=== PATIENT | male | born 1955 | race Caucasian/White ===

== ENCOUNTER 2023-06-21 03:51 | Inpatient (IN) | payer MEDICARE, SELFPAY ==
[2023-06-20 23:37] VITALS: BMI 32.9
[2023-06-20 23:43] VITALS: BP 155/80
[2023-06-21] VITALS (17 sets, daily range): BP systolic 147–178; BP diastolic 65–85
--- NOTE | 2023-06-21 00:01 | ED.GENMED ---
History of Present Illness
General
Chief Complaint: Abdominal Pain
Source: patient
Exam Limitations: none
Time Seen by Provider: 06/20/23 23:52
Travel History
Have you had any contact with someone who has COVID-19?: No
Do you have any symptoms of coronavirus? Fever > 100 degrees, chills, cough, shortness of breath, sore throat, loss of taste or smell, muscle aches, or headache?: No
History of Present Illness
History of Present Illness:
This is a 67 year old male that comes in with c/o abd pain. States that he started today around 2-3pm with unbearable abd pain. States that he had not had a BM in the past 3 days. States that he tried Gas-X, Dulcolax and Miralax but before this even
had a change to work he had a BM. States that he eat a lot of food over the weekend. States that his abd was bloated with the pain. States that he was hot and cold sweats, and nauseated. Denies any fever, chills, chest pain, SOB, vomiting, diarrhea,
headache, dizziness, urinary burning.
Past History
Past History
ED Past Medical History: HTN and Other (Diverticulosis and itis, Eczema, Peripheral neuropathy)
ED Past Surgical History: Orthopedic (Back surgery) and Tonsilectomy
Social History
Tobacco: Former smoker
Alcohol: None
Personal:
Living: alone
Employment: Employed
Review of Systems
Review of Systems
All Other Systems: ROS reviewed and negative except as documented in HPI and ROS
Constitutional: Reports other (Sweats and hot flashes); Denies fever
EENT: Reports no symptoms
Respiratory: Reports no symptoms; Denies cough or trouble breathing
Cardiac: Reports no symptoms; Denies chest pain
ABD/GI: Reports abdominal pain and nausea; Denies vomiting or diarrhea
: Reports no symptoms; Denies dysuria, frequency or urgency
Musculoskeletal: Reports no symptoms
Skin: Reports no symptoms
Neurological: Reports no symptoms; Denies dizzy or headache
Psychiatric: Reports no symptoms
Phy Exam
General Physical Exam
General Presentation: no apparent distress
General age: appears stated age
General Skin: warm and dry
General Habitus: normal
General Mental: alert
General Hydration: appears well hydrated
ENT Exam
ENT Exam: TM's normal, pharynx normal and neck supple
Eye Exam
Eye Exam: EOMI
Cardiovascular Exam
Cardiovascular Exam: regular rate/rhythm, no edema and normal peripheral pulses
Pulmonary Exam
Pulmonary Exam: lungs clear, no respiratory distress, no rales, chest non tender, no crackles, no rhonchi, no wheezing and no cough
Gastrointestinal Exam
Gastrointestinal Exam: normal bowel sounds, soft, no organomegaly, no pulsatile mass, non distended and tender (Mid abd tenderness with palpation)
Musculoskeletal Exam
Musculoskeletal Exam: full ROM and no edema
Skin Exam
Skin Exam: normal color, warm/dry, no rash and no petechia
Psychiatric Exam
Psychiatric Exam: normal mood/affect
Course
Orders/Labs/Results
Orders:
Orders
06/21/23 00:00
CT Abd/Pel (IV only)-DH only Urgent
Comment: History of diverticulitis
Reason For Exam: Mid abd pain,
IV Insert/Care/Rem.- Treatment PRN
Urinalysis Reflex To Culture Urgent
Date Specimen was Collected: 06/21/23
Time Specimen was Collected: 02:55
0.9% Sodium Chloride 1000 ml [Nss] 1,000 ml IV BOLUS
06/21/23 00:04
Ondansetron Injectable [Zofran] 4 mg IV NOW STA
06/21/23 00:34
Complete Blood Count/With Diff Urgent
Comprehensive Metabolic Panel Urgent
Lipase Urgent
06/21/23 00:47
Ketorolac [Toradol] 30 mg IV NOW STA
06/21/23 02:45
LevoFLOXacin 500 MG/100 ML [Levaquin] 500 mg in 100 ml IV NOW
MetroNIDAZOLE 500 MG/100 ML [Flagyl 500 mg] 100 ml IV NOW
06/21/23 03:03
Consult Surgery [SURGICAL CONSULT] Urgent
Consulting Provider: Valeriy Marquez
Was physician already notified: Yes
Abnormal Lab Results
06/21/23
00:34
WBC 14.6 H 10^3/uL
(4.8-10.8)
Abs Immat Gran (auto) 0.1 H 10^3/uL
(0-0.05)
Absolute Neuts (auto) 13.3 H 10^3/uL
(1.4-6.5)
Absolute Lymphs (auto) 0.4 L 10^3/uL
(1.2-3.4)
Absolute Monos (auto) 0.7 H 10^3/uL
(0.1-0.6)
Neutrophils % 91.5 H %
(42.2-75.2)
Lymphocytes % 2.9 L %
(20.5-51.1)
Glucose 148 H mg/dl
(70-99)
Calcium 10.5 H mg/dl
(8.4-10.2)
06/21/23 00:34
06/21/23 00:34
Leukocytosis, Glucose nonfasting. Calcium slightly elevated. Lipase normal at 111
Vital Signs
Initial and Last Documented VS:
Initial Vital Signs
Temp Pulse Resp BP Pulse Ox
98.2 F 64 22 155/80 97
06/20/23 23:43 06/20/23 23:43 06/20/23 23:43 06/20/23 23:43 06/20/23 23:43
Last Documented Vital Signs
Temp Pulse Resp BP Pulse Ox
98.2 F 64 22 165/68 94
06/20/23 23:43 06/20/23 23:43 06/20/23 23:43 06/21/23 01:00 06/21/23 01:45
MDM/Problems Addressed
Differential Diagnosis Includes:
Constipation, Diverticulitis
MDM/Problems Addressed:
This is a 67 year old male that comes in with c/o unbearable abd pain. States that he eat a lot over the weekend and he had not had a BM in 3 days. States that he had abd bloating first and then he tried Miralax, Dulcolax and Gas-X and before this
had a change to work he had a BM.
Will get labs and CT scan.
Back into see patient. Explained that he would be admitted as he has a small bowel obstruction. There is also some bowel wall thickening. Will admit patient and give IV antibiotics. Explained that the hospitalist will admit patient and they may have
surgery and GI see patient.
Chronic conditions affecting care:
Diverticulitis
Acute Exacerbation and/or Progression of Chronic Illness:
Diverticulitis
*Radiology
Radiology exam reviewed: radiology read reviewed (CT night hawk- Comparison 12/21/2017. There is a high-grade mecahanical small bowel obstruction with transition point in the central abdomen where there is a focal small bowel wall thickening and
calcification. This may be due to a small bowel mass such as carcinoid or possibly a lesion such as ) and other (CT cont- Meckel diverticulum with mesodiverticular band. Normal appendix. No free air. No obstructive uropathy. NO concerning bone
finding. )
*Pulse Oximetry
Patient hypoxic: no
*EKG
Interpreted by ED Provider?: NA
Rate: EKG- N/A
*Floatlight Loading Supervisor Interpretation
Rate: Floatlight Loading Supervisor- N/A
*Critical Care Note
Total Time (30-74mins, 75-104mins- exclusive of procedures): Not Applicable
ED Attending Note
-
Portions of this chart may have been created with voice recognition software.� Occasional wrong word or��sound alike� substitutions may have occurred due to the inherent limitations of voice recognition software.
Discharge Plan
Departure
Patient Disposition: Admit
Date of Disposition: 06/21/23
Time of Disposition: 02:53
Admit to: Med/Surg
Presentation/result/management discussed w/ accepting MD/DO: Hospitalist
Patient with high blood pressure during this ER visit?: Yes
Condition: Good
Covid-19: Not Applicable
Discharge Problem:
SBO (small bowel obstruction)
Prescriptions:
No Action
losartan 50 MG tablet
100 mg PO DAILY
amlodipine 2.5 MG tablet
2.5 mg PO DAILY
metronidazole 500 MG tablet
500 mg PO TID Qty: 21 0RF
multivitamin [Multi-Vitamins] Tablet
1 tab
Garlique 400 mg Tablet,Delayed Release (Dr/Ec)
1 mg PO
ascorbic acid (vitamin C) [Vitamin C] 500 mg Tablet
500 mg PO DAILY
ascorbic acid (vitamin C) [Vitamin C] 500 mg Tablet
500 mg PO DAILY
ferrous sulfate [iron] 325 mg (65 mg iron) Tablet
325 mg PO DAILY
magnesium oxide 500 mg Tablet
500 mg PO DAILY
vitamin E 100 unit Tablet
1 unit PO 1XD
vitamin B6-vitamin E-magnesium Tablet
1 tab PO 1XD
cholecalciferol (vitamin D3) [Vitamin D3] 25 mcg (1,000 unit) Tablet
25 mcg PO DAILY
omega 1-hvr-rsz-fish oil [Fish Oil] 1,200 (144-216) mg Capsule
1 cap PO 1XD
Referrals:
Devin Yanez DO [Family Provider] -
Interventions
Interventions:
*Risk Screen - Suicide Last Done: 06/20/23 23:43
*General Assessment Last Done: 06/21/23 00:48
*Neglect/Abuse Screening Last Done: 06/20/23 23:43
RC-Zplgkd-Ctygjvdvxt Assessment Last Done: 06/21/23 00:48
Discharge Date and Time
Print Language: CITIZEN OF [place]
[2023-06-21] MEDS: ZOFRAN 4 MG IV ×2 (00:38→04:40)
[2023-06-21] MEDS: NSS 1000 IV ×3 (00:39→19:00)
[2023-06-21 00:49] LABS: % Basophils 0.3 % (0-2); % Eosinophils 0.1 % (0-6); % Immature Granulocytes 0.4 % (0-0.5); % Lymphocytes 2.9 % (20.5-51.1); % Monocytes 4.8 % (1.7-9.3); % Neutrophils 91.5 % (42.2-75.2); Absolute Immature Granulocytes 0.1 10^3/uL (0-0.05); Absolute Lymphocytes 0.4 10^3/uL (1.2-3.4); Absolute Monocytes 0.7 10^3/uL (0.1-0.6); Absolute Neutrophils 13.3 10^3/uL (1.4-6.5); Hematocrit 44.7 % (39.0-52.0); Hemoglobin 15.6 g/dL (13.0-18.0); Mean Corp Hgb Conc. 34.9 g/dL (33.0-37.0); Mean Corpuscular Hgb 30.4 pg (27.0-31.0); Mean Platelet Volume 9.6 fL (7.4-10.4); Nucleated Red Blood Cells % 0 % (-); Platelet Count 193 10^3/uL (130-400); Red Blood Cell Count 5.14 10^6/uL (4.70-6.10); Red Cell Dist. Width 13.7 % (11.5-14.5); White Blood Cell Count 14.6 10^3/uL (4.8-10.8)
[2023-06-21] MEDS: TORADOL 30 MG IV (00:53)
[2023-06-21 01:06] LABS: ALT (SGPT) 20 U/L (0-50); AST (SGOT) 25 U/L (17-59); Albumin 4.7 g/dl (3.5-5.0); Alkaline Phosphatase 70 U/L (38-126); Blood Urea Nitrogen 18 mg/dl (9-20); Calcium 10.5 mg/dl (8.4-10.2); Carbon Dioxide 26 mmol/L (22-30); Chloride 101 mmol/L (98-107); Estimated Creatinine Clearance > 125 ml/min; Glucose 148 mg/dl (70-99); Lipase 111 U/L (23-300); Potassium 4.2 mmol/L (3.5-5.1); Sodium 136 mmol/L (135-145); Total Protein 7.4 g/dl (6.3-8.2); eGFR > 60.00
--- NOTE | 2023-06-21 03:20 | HPS.HSE ---
Family Physician
-
Family Physician: Devin Yanez
Chief Complaint
-
abd pain
History of Present Illness
67 y/o M hx of HTN, presents with abd pain. pain started 3pm. Pain is central abdomen, nonradating, severe when he presented to ER associated symptoms include hot/cold sweats, + nausea. No fever/chills, no chest pain or SOB. no other complaints. He
does note no BM in last 3 days. Has tried various meds such as GasX, ducolax and Miralax without success. Patient admits to eating alot of food this weekend during a celebratory dinner honoring his late .
In ER, CT imaging revealed high-grade SBO
Medical History
Past Medical History
Past Medical History: Reports HTN
Past Surgical History: Reports Tonsilectomy
Social History
Tobacco: Former Smoker
Alcohol: None
Personal:
Living: Alone
Employment: Employed
Family History
Family History: Not pertinent
Allergies / Home Medications
Allergies reflects when Allergies were last updated in [facility].
Home Medications with original date entered in [facility]
Allergy/Medication List:
Allergies
Allergy/AdvReac Type Severity Reaction Status Date / Time
cephalexin Allergy Unknown Verified 06/20/23 23:46
Home Medications
amlodipine 2.5 mg tablet 2.5 mg PO DAILY 12/21/17
losartan 50 mg tablet 100 mg PO DAILY 12/21/17
metronidazole 500 mg tablet 500 mg PO TID #21 tabs 12/21/17
ascorbic acid (vitamin C) 500 mg tablet (Vitamin C) 500 mg PO DAILY 08/06/22
ascorbic acid (vitamin C) 500 mg tablet (Vitamin C) 500 mg PO DAILY 08/06/22
cholecalciferol (vitamin D3) 25 mcg (1,000 unit) tablet (Vitamin D3) 25 mcg PO DAILY 08/06/22
ferrous sulfate 325 mg (65 mg iron) tablet (iron) 325 mg PO DAILY 08/06/22
garlic 400 mg tablet,delayed release 1 mg PO 08/06/22
magnesium oxide 500 mg PO DAILY 08/06/22
multivitamin 1 tab 08/06/22
omega 2-caa-brl-fish oil 1,200 mg (144 mg-216 mg) capsule (Fish Oil) 1 cap PO 1XD 08/06/22
vitamin B6-vitamin E-magnesium tablet 1 tab PO 1XD 08/06/22
vitamin E 100 unit tablet 1 unit PO 1XD 08/06/22
pending home med verification
Review of Systems
-
A 12 point ROS was completed and negative except as noted: Yes
Physical Exam
Vital Signs
Vital Signs
Temp Pulse Resp BP Pulse Ox
98.2 F 64 22 165/68 94
06/20/23 23:43 06/20/23 23:43 06/20/23 23:43 06/21/23 01:00 06/21/23 01:45
Physical Exam
General: No Apparent Distress and Obese
HEENT: NormoCephalic
Respiratory: No Wheezes or Rales
Cardiac: S1/S2 and Regular Rhythm
GI: Soft and Tender (mild central abdomen)
Neuro: AO x 3
Hematologic/Lymphatic: No Lymphadenopathy
Psych: Calm
Laboratory Results
-
06/21/23 00:34
06/21/23 00:34
Laboratory Results
Total Bilirubin 1.0 mg/dl (0.2-1.3) 06/21/23 00:34
AST 25 U/L (17-59) 06/21/23 00:34
ALT 20 U/L (0-50) 06/21/23 00:34
Alkaline Phosphatase 70 U/L (38-126) 06/21/23 00:34
Lipase 111 U/L (23-300) 06/21/23 00:34
Data Reviewed
-
CT Scan: Report Reviewed by me and Discussed with Patient
Lab Data: Labs Reviewed by me and Discussed with Patient
Impression/Plan
-
Assessment:
High grade mechanical SBO
- night read of CT: high grade mechanical SBO with transition point central abdomen with focal small bowel thickening. f/u formal read
- no fevers; defer Abx. Suspect leukocytosis from stress/dehydration.
- NPO/IVF
- pain control, anti-emetics
- watch for vomiting and NGT needs; none currently.
- GS consulted in real time; no surgical intervention urgently indicated per Dr. Marquez
Essential HTN
- continue ARB/Norvasc
DVT ppx: SCDs
Code: Full
[2023-06-21 03:39] LABS: Urine Albumin Trace (Neg - Trace); Urine Bilirubin Negative (Negative); Urine Character Clear (Clear); Urine Color Yellow; Urine Glucose Negative (Negative); Urine Ketone 1+ (Negative); Urine Leukocyte Negative (Negative); Urine Nitrite Negative (Negative); Urine Occult Blood Negative (Negative); Urine Urobilinogen Negative (Neg - 1+)
--- NOTE | 2023-06-21 06:22 | PTCARENOTE ---
Received pt from ER alert oriented,ambulatory to room from stretcher,tolerated activity well.Pt vomited x1 100 mls once sitting down,Zofran was given right before arrival in ER.Physical assessment preformed,pt denies pain. IVF NSS initiated at 80mls
hr,sleeping after admission done,VS stable.
[2023-06-21 06:38] LABS: Hematocrit 41.9 % (39.0-52.0); Hemoglobin 14.5 g/dL (13.0-18.0); Mean Corp Hgb Conc. 34.6 g/dL (33.0-37.0); Mean Corpuscular Volume 86.7 fL (80.0-94.0); Mean Platelet Volume 9.6 fL (7.4-10.4); Platelet Count 186 10^3/uL (130-400); Red Blood Cell Count 4.83 10^6/uL (4.70-6.10); Red Cell Dist. Width 13.8 % (11.5-14.5); White Blood Cell Count 13.9 10^3/uL (4.8-10.8)
[2023-06-21 07:02] LABS: Blood Urea Nitrogen 18 mg/dl (9-20); Calcium 10.3 mg/dl (8.4-10.2); Carbon Dioxide 20 mmol/L (22-30); Chloride 107 mmol/L (98-107); Estimated Creatinine Clearance > 125 ml/min; Glucose 129 mg/dl (70-99); Potassium 4.4 mmol/L (3.5-5.1); Sodium 138 mmol/L (135-145); eGFR > 60.00
--- NOTE | 2023-06-21 07:49 | CON.GS ---
Medical History
-
Chief Complaint: Abdominal pain
History of Present Illness:
Patient is a 67 yo M with a PMH of obesity, HTN, and diverticulosis with known Meckel's diverticulum who presents to the hospital with less than 24 hours of abdominal pain. Mr. Chakraborty states that his symptoms began yesterday afternoon and
describes a severe crampy abdominal pain in his central abdomen. He initially attributed his symptoms to constipation and attempted OTC bowel regimen with a small bowel movement, but no relief in his symptoms. His abdominal pain persisted and
worsened prompting presentation to the ED. no flatus or further bowel movement since admission. No fevers or chills. No recent weight loss. No bloody stools. Episode of nausea and vomiting upon arriving to the floors in the hospital. She
reports 1 prior episode of similar though less severe pain back in 2018. No personal history of GI malignancies. Most recent colonoscopy was in 02/2023 following a resection of a tubular adenoma of the cecum in 08/2022.
Past Medical History
Past Medical History: HTN and Other (Obesity, diverticulosis)
Past Surgical History: Tonsilectomy
Social History
Tobacco: Non-Smoker
Alcohol: Occasional
Drug: None
Personal:
Living: Alone
Family History
Family History: Reviewed & Noncontributory
Allergies / Home Medications
Allergy/AdvReac Type Severity Reaction Status Date / Time
cephalexin Allergy Unknown Verified 06/20/23 23:46
�Medication �Instructions �Recorded �Confirmed �Type
amlodipine 2.5 mg tablet 2.5 mg PO DAILY Blood Pressure 12/21/17 06/21/23 History
losartan 50 mg tablet 100 mg PO DAILY Blood Pressure 12/21/17 06/21/23 History
metronidazole 500 mg tablet 500 mg PO TID #21 tabs 12/21/17 08/06/22 Rx
ascorbic acid (vitamin C) 500 mg 500 mg PO DAILY Supplement 08/06/22 08/06/22 History
tablet (Vitamin C)
ascorbic acid (vitamin C) 500 mg 500 mg PO DAILY Supplement 08/06/22 08/06/22 History
tablet (Vitamin C)
cholecalciferol (vitamin D3) 25 25 mcg PO DAILY Supplement 08/06/22 08/06/22 History
mcg (1,000 unit) tablet (Vitamin
D3)
ferrous sulfate 325 mg (65 mg 325 mg PO DAILY Supplement 08/06/22 08/06/22 History
iron) tablet (iron)
garlic 400 mg tablet,delayed 1 mg PO Supplement 08/06/22 History
release
magnesium oxide 500 mg PO DAILY Electrolyte 08/06/22 08/06/22 History
Repletion
multivitamin 1 tab Supplement 08/06/22 History
omega 6-erf-lpq-fish oil 1,200 mg 1 cap PO 1XD High Cholesterol 08/06/22 08/06/22 History
(144 mg-216 mg) capsule (Fish Oil)
vitamin B6-vitamin E-magnesium 1 tab PO 1XD Supplement 08/06/22 08/06/22 History
tablet
vitamin E 100 unit tablet 1 unit PO 1XD Supplement 08/06/22 08/06/22 History
Review of Systems
-
A 10 point review of systems was completed, and was negative except as per HPI.
Physical Exam
Vital Signs
Temp Pulse Resp BP Pulse Ox
98.4 F 72 18 178/79 98
06/21/23 05:51 06/21/23 05:51 06/21/23 05:51 06/21/23 05:51 06/21/23 06:16
06/20/23 06/21/23 06/22/23
06:59 06:59 06:59
Actual Weight 111.4 kg
Body Mass Index (BMI) 32.9
Lab Results
06/21/23 06:17
06/21/23 06:17
WBC 13.9 10^3/uL (4.8-10.8) H 06/21/23 06:17
Hgb 14.5 g/dL (13.0-18.0) 06/21/23 06:17
Hct 41.9 % (39.0-52.0) 06/21/23 06:17
Plt Count 186 10^3/uL (130-400) 06/21/23 06:17
Abs Immat Gran (auto) 0.1 10^3/uL (0-0.05) H 06/21/23 00:34
Neutrophils % 91.5 % (42.2-75.2) H 06/21/23 00:34
Physical Exam
General: Well Developed, Well Nourished and No Apparent Distress
HEENT: Normocephalic and Anicteric
Respiratory: Non Labored Respirations
Cardiac: Regular Rhythm
GI: Soft, Tender (Mild mid abdomen), Distended (Moderate, tympanitic), Obese and Other (Non-peritoneal)
Musculoskeletal: No Edema
Skin: Warm and Dry
Neuro: Nonfocal/Grossly Intact
Data Reviewed
-
CT Scan: Image Personally Visualized and interpreted
Labs: Labs Reviewed by me
Old Records: Reviewed
Assessment / Plan
-
Patient is a 67 yo M p/w SBO secondary to small bowel mass versus Meckel's diverticulum
The natural history and pathophysiology of small bowel obstructions was discussed. Current bowel obstruction does not appear to be related to adhesions or hernias, more likely related to a small bowel mass or diverticulum. Abrupt transition point
at the area of this calcified diverticulum. No radiographic or clinical concerns for bowel ischemia or perforation (no pneumatosis, significant bowel wall thickening, or free air, though scan limited by lack of oral contrast). Options for
management at this time including medical management with NGT decompression and antibiotics versus surgical exploration and likely small bowel resection were considered and discussed. The pros and cons of both approaches was discussed. We
discussed that given the findings of a potential small bowel mass and diverticulum with prior issues back in 2018 and current issues, surgical exploration and resection would be recommended regardless of the ability to manage this current episode
medically. Patient agrees and willing to proceed with surgical exploration.
Plan for a laparoscopic possible open lysis of adhesions and small bowel resection. The procedure itself, as well as the risks, benefits, and alternatives was discussed. Specifically, we discussed the risks of bleeding, infection, injury to
surrounding structures, anastomotic leak, wound complications, hernia formation, and complications from general anesthesia. Typical postprocedural recovery including the potential for ileus were discussed. All questions answered. Consent signed.
-- Laparoscopic assisted small bowel resection
-- NPO, IVF
-- NGT given degree of gastric distension on CT
-- Abx: Levaquin and Flagyl
--- NOTE | 2023-06-21 08:00 | W.SUR.PREOP ---
Pre-Operative Surgical Note
-
I have examined this patient prior to the performance of the scheduled procedure.
The patient's condition is unchanged from the time of the current History and
Physical and the patient is able to undergo the scheduled procedure.
[2023-06-21] MEDS: FLAGYL 500 MG 100 IV (08:34)
[2023-06-21] MEDS: NORVASC PO (08:47)
[2023-06-21] MEDS: MORPHINE SULFATE 2 MG IV (08:47)
[2023-06-21] MEDS: COZAAR PO (08:47)
--- NOTE | 2023-06-21 09:39 | W.PN.HOSP.TC ---
Today's Communication/Plan
-
see plan
Assessment / Plan
Assessment / Plan
67 y/o man with hx HTN presents with abd pain in setting no BM x 3 days. In ER, CT imaging revealed high-grade SBO.
CT A/P
IMPRESSION:
1. Findings consistent with high-grade small bowel obstruction. Transition point is seen within the mid abdomen, best seen on series 201 images 48-53, and coronal images 22-25. Obstruction may be due to adhesions, small bowel inflammatory process,
or small bowel mass.
2. No evidence of pneumatosis intestinalis or extraluminal air.
High grade mechanical SBO
-appreciate surgery, plan for laparascopic assisted small bowel resection today
- NPO/IVF
- NGT
- pain control
- antibiotics Levaquin/Flagyl
Essential HTN
- continue ARB/Norvasc
DVT ppx: SCDs
Code: Full
Anticipated Discharge: > 48 hours
Subjective/Interval History
-
Date of Service: June 21, 2023
NGT uncomfortable
abdomen less distended
passed gas once yesterday
Objective Data
-
Labs:
Laboratory Results
06/21/23 06/21/23
00:34 06:17
WBC 14.6 H 13.9 H
Hgb 15.6 14.5
Hct 44.7 41.9
Plt Count 193 186
Sodium 136 138
Potassium 4.2 4.4
Chloride 101 107
Carbon Dioxide 26 20 L
BUN 18 18
Creatinine 0.7 0.7
Glucose 148 H 129 H
Calcium 10.5 H 10.3 H
Total Bilirubin 1.0
AST 25
ALT 20
Alkaline Phosphatase 70
Vital Signs:
Vital Signs
Temp Pulse Resp BP Pulse Ox
98.4 F 67 19 167/80 99
06/21/23 07:18 06/21/23 07:18 06/21/23 07:18 06/21/23 07:18 06/21/23 07:18
I&O
06/20/23 06/21/23 06/22/23
06:59 06:59 06:59
Output Total 800 / 800
Balance -800 / -800
Review of Systems
-
History Source: Patient
All other systems: Reviewed and negative
Physical Exam
-
General: No Apparent Distress
HEENT: PERRLA and Other (NGT in place )
Respiratory: Clear to Auscultation; Negative Wheezes
Cardiac: Regular Rhythm and S1/S2
GI: Other (non-tender with NGT in )
Musculoskeletal: No Edema
Skin: Warm and Dry; Negative Rash
Neuro: AO x 3
Psych: Calm
Data Reviewed
-
Diagnostic Radiology: Report Reviewed by me
Labs: Labs Reviewed by me
[2023-06-21] MEDS: LEVAQUIN 100 IV (10:02)
[2023-06-21] MEDS: CHLORASEPTIC/SORE THROAT SPRAY 1 SPRAY PO (10:09)
--- NOTE | 2023-06-21 10:50 | CM ---
CM met with pt bedside
Pt resides alone in a 2SH with 2STE, 13 steps to full bath and bedroom
Pt recently - emotional support provided
Pt is independent with his ADLs without any ADS, drives+, food secure
Pt has a WW for use if needed
Pt has 4 children and 8 grandchildren- most local and a great support to pt
PCP- Devin Yanez
Rx- [facility]
Plan for OR today for lap. small bowel resection
CM will follow pt for dc planning
Discharge Disposition- home, no needs anticipated
--- NOTE | 2023-06-21 18:08 | W.IMMPOSTOP ---
Addendum entered and electronically signed by Valeriy Marquez MD 06/21/23 18:30:
Dic#[id number]
Original Note:
Surgical Immed Post Op Note
-
Primary Surgeon: Jimmy
Assisting Surgeon: None
Pre-op Diagnosis: SBO
Post-op Diagnosis: SBO
Procedure Performed: Laparoscopic assisted small bowel resection x2, primary umbilical hernia repair
Anesthesia Type: General
Specimen / Cultures:
1. Sement of small bowel
Estimated Blood Loss: 11 cc
Complications: None
Operative Findings:
1. High grade obstruction within jejunum involving two separate loops of bowel approximately 30-40 cm apart
2. Firm fibrotic adhesion unable to be safely lysed, no clear mass, diverticulum, desmoplastic reaction, or palpable adenopathy
3. En-block resection
4. Primary stapled anastomosis x2 with ERENDIRA blue load and TA 60, mesenteric defect closed
5. Umbilical hernia containing fat, defect 1 cm, primary closure incorporated into extraction
[2023-06-21] MEDS: FLAGYL 500 MG IV (18:55)
[2023-06-21] MEDS: DILAUDID 0.5 MG IV ×2 (18:57→22:03)
[2023-06-21] MEDS: DILAUDID IV (22:03)
[2023-06-22] MEDS: FLAGYL 500 MG 100 IV ×4 (00:06→23:46)
[2023-06-22] MEDS: OFIRMEV 100 IV ×5 (00:12→23:46)
[2023-06-22 03:15] VITALS: BP 152/73
[2023-06-22] MEDS: NSS 1000 IV (06:14)
[2023-06-22 07:05] LABS: % Basophils 0.2 % (0-2); % Immature Granulocytes 0.3 % (0-0.5); % Lymphocytes 7.9 % (20.5-51.1); % Monocytes 10.4 % (1.7-9.3); % Neutrophils 81.2 % (42.2-75.2); Absolute Lymphocytes 0.8 10^3/uL (1.2-3.4); Absolute Neutrophils 7.8 10^3/uL (1.4-6.5); Hematocrit 39.3 % (39.0-52.0); Hemoglobin 13.4 g/dL (13.0-18.0); Mean Corp Hgb Conc. 34.1 g/dL (33.0-37.0); Mean Corpuscular Hgb 30.7 pg (27.0-31.0); Mean Corpuscular Volume 90.1 fL (80.0-94.0); Mean Platelet Volume 10.3 fL (7.4-10.4); Nucleated Red Blood Cells % 0 % (-); Platelet Count 170 10^3/uL (130-400); Red Blood Cell Count 4.36 10^6/uL (4.70-6.10); Red Cell Dist. Width 13.9 % (11.5-14.5); White Blood Cell Count 9.6 10^3/uL (4.8-10.8)
[2023-06-22 07:29] VITALS: BP 151/75
[2023-06-22 07:39] LABS: Blood Urea Nitrogen 16 mg/dl (9-20); Carbon Dioxide 25 mmol/L (22-30); Chloride 105 mmol/L (98-107); Estimated Creatinine Clearance 113 ml/min; Glucose 119 mg/dl (70-99); Magnesium 2.1 mg/dl (1.6-2.3); Potassium 4.2 mmol/L (3.5-5.1); Sodium 137 mmol/L (135-145); eGFR > 60.00
[2023-06-22] MEDS: DILAUDID 0.5 MG IV (07:57)
[2023-06-22] MEDS: PROTONIX IV 40 MG IV (07:59)
[2023-06-22] MEDS: NSS (PRESERVATIVE FREE) 10 ML IV (07:59)
[2023-06-22] MEDS: NORVASC 2.5 MG PO (08:20)
[2023-06-22] MEDS: COZAAR 100 MG PO (08:20)
[2023-06-22] MEDS: LEVAQUIN 100 IV (09:20)
--- NOTE | 2023-06-22 10:20 | W.PN.GS2 ---
Addendum entered and electronically signed by Valeriy Marquez MD 06/30/23 08:23:
CDI
Intestinal Abscess present on pathology and was present on admission
Addendum entered and electronically signed by Valeriy Marquez MD 06/22/23 13:55:
CDI
Compete SBO
Original Note:
Today's Communication / Plan
-
-- NPO, IVF, NGT decompression until ROBF
-- Pain control: Tylenol, Toradol, IV Dilaudid PRN
-- Abx for 24 hours post-op, no need for additional after today
Assessment / Plan
-
Patient is a 67 yo M POD#1 s/p laparoscopic assisted SBR x 2 and open primary umbilical hernia repair
Recovering well. No postoperative concerns.
-- NPO, IVF, NGT decompression until ROBF
-- Pain control: Tylenol, Toradol, IV Dilaudid PRN
-- Abx for 24 hours post-op, no need for additional after today
-- OOB/ambulate
-- Lovenox for DVT
-- Protonix for GI
Subjective Data
-
Date of Service: June 22, 2023
Reports LEFT flank and back soreness. Denies worsening abdominal pain. No nausea or vomiting. No flatus or stool. Minimal ambulation. Olivo removed, due to void.
Objective Data
-
Intake and Output
06/21/23 06/22/23 06/23/23
06:59 06:59 06:59
Intake Total 1340 / 1340
Output Total 2875 / 2875 450 / 450
Balance -1535 / -1535 -450 / -450
Intake:
IV fluids (Total) 1110 / 1110
normosol 150 / 150
IV piggybacks 200 / 200
Amount instilled into GI Tube ( 30 / 30
Total)
[place] Sump 30 / 30
Output:
Gastrointestinal tube output ( 1550 / 1550 150 / 150
Total)
[place] Sump 1550 / 1550 150 / 150
Urine, Olivo 325 / 325
Urine, Voided 1000 / 1000 300 / 300
Vital Signs
Temp Pulse Resp BP Pulse Ox
99.1 F 66 20 151/75 98
06/22/23 07:29 06/22/23 08:20 06/22/23 07:29 06/22/23 08:20 06/22/23 07:29
Lab Results
06/22/23 06:10
06/22/23 06:10
Calcium 9.0 mg/dl (8.4-10.2) 06/22/23 06:10
Magnesium 2.1 mg/dl (1.6-2.3) 06/22/23 06:10
Total Bilirubin 1.0 mg/dl (0.2-1.3) 06/21/23 00:34
AST 25 U/L (17-59) 06/21/23 00:34
ALT 20 U/L (0-50) 06/21/23 00:34
Alkaline Phosphatase 70 U/L (38-126) 06/21/23 00:34
Total Protein 7.4 g/dl (6.3-8.2) 06/21/23 00:34
Albumin 4.7 g/dl (3.5-5.0) 06/21/23 00:34
Physical Exam
-
Gen: NAD
HEENT: hash slinger brown output
Abd: soft, mild tenderness, mild distension, non-peritoneal, incisions c/d/i - no erythema, ecchymosis, or drainage
--- NOTE | 2023-06-22 10:42 | W.PN.HOSP.TC ---
Today's Communication/Plan
-
see plan
Assessment / Plan
Assessment / Plan
67 y/o man with hx HTN presents with abd pain in setting no BM x 3 days. In ER, CT imaging revealed high-grade SBO.
CT A/P
IMPRESSION:
1. Findings consistent with high-grade small bowel obstruction. Transition point is seen within the mid abdomen, best seen on series 201 images 48-53, and coronal images 22-25. Obstruction may be due to adhesions, small bowel inflammatory process,
or small bowel mass.
2. No evidence of pneumatosis intestinalis or extraluminal air.
High grade mechanical SBO
- now post-op Day 1 laparoscopic assisted SBR x 2 and open primary umbilical hernia repair
- NPO/ IVF
- NGT
- pain control
- antibiotics Levaquin/Flagyl x 24 more horus
- appreciate surgery
-DVT PPx
MSK sprain
-trial of lidocaine patch
Essential HTN
- home meds: ARB/Norvasc on hold with NGT
- monitor BP
DVT ppx: lovenox
Code: Full
Anticipated Discharge: > 48 hours
Subjective/Interval History
-
Date of Service: June 22, 2023
feels some movement in abdomen
left shoulder pain since post-op; not worse with deep breaths, mildly exacerbated by movement
Objective Data
-
Labs:
Laboratory Results
06/22/23
06:10
WBC 9.6
Hgb 13.4
Hct 39.3
Plt Count 170
Sodium 137
Potassium 4.2
Chloride 105
Carbon Dioxide 25
BUN 16
Creatinine 0.8
Glucose 119 H
Calcium 9.0
Vital Signs:
Vital Signs
Temp Pulse Resp BP Pulse Ox
99.1 F 66 20 151/75 98
06/22/23 07:29 06/22/23 08:20 06/22/23 07:29 06/22/23 08:20 06/22/23 07:29
I&O
06/21/23 06/22/23 06/23/23
06:59 06:59 06:59
Intake Total 1340 / 1340
Output Total 2875 / 2875 450 / 450
Balance -1535 / -1535 -450 / -450
Review of Systems
-
History Source: Patient
All other systems: Reviewed and negative
Physical Exam
-
General: No Apparent Distress
HEENT: PERRLA and Other (NGT in place )
Respiratory: Clear to Auscultation; Negative Wheezes
Cardiac: Regular Rhythm and S1/S2
GI: Other (non-tender with NGT in )
Musculoskeletal: No Edema and Other (tenderness left shoulder; no nuchal rigidity )
Skin: Warm and Dry; Negative Rash
Neuro: AO x 3
Psych: Calm
Data Reviewed
-
Diagnostic Radiology: Report Reviewed by me
Labs: Labs Reviewed by me
[2023-06-22] MEDS: LIDOCAINE 4% PATCH 1 PATCH TOPICAL (11:14)
--- NOTE | 2023-06-22 11:30 | CM ---
Reviewed the chart notes. POD #1 s/p laparoscopic assisted SBR x 2 and open primary umbilical hernia repair. NPO, IVF, NGT decompression until ROBF. CM continues to be available to patient/family and is monitoring medical plan for needs at
discharge.
Plan: Discharge to home when medically stable.
[2023-06-22 11:41] VITALS: BP 140/69
--- NOTE | 2023-06-22 12:40 | PN.CDI ---
CDI
- -
CDI:
Physician Documentation Request
Admit Date: 06/21/23 03:51
Dear Doctor Jimmy,
Please review the following and provide your response in the progress notes.
Clinical Indicators:
#Patient is a 67 yo M p/w SBO secondary to small bowel mass versus Meckel's diverticulum
PN, 06/21
#Patient is a 67 yo M POD#1 s/p laparoscopic assisted SBR x 2
#...and open primary umbilical hernia repair
Please clarify the specificity of the small bowel obstruction:
Partial small bowel obstruction
Complete small bowel obstruction
Other(please specify)
Use of terms such as suspected, likely, concern for, or probable (associated with a specific diagnosis that is being evaluated, monitored, or treated as if it exists) are acceptable and can be coded in the inpatient setting, when documented at the
time of discharge.
Thank you,
Flory Wilburn RN BSN CCDS
CDI Specialist
please contact via tiger text
Please use your independent medical judgment in providing your response.
[2023-06-22] MEDS: D5LR 1000 IV (14:17)
[2023-06-22 15:33] VITALS: BP 154/70
[2023-06-22] MEDS: LOVENOX 40 MG SC (18:26)
[2023-06-22 19:00] VITALS: BP 140/64
[2023-06-22] MEDS: TORADOL 10 MG IV (20:55)
[2023-06-22] MEDS: MELATONIN 3 MG PO (22:51)
[2023-06-22 23:42] VITALS: BP 132/83
[2023-06-23] MEDS: D5LR 1000 IV ×2 (01:32→15:52)
[2023-06-23 06:50] LABS: Blood Urea Nitrogen 17 mg/dl (9-20); Calcium 8.9 mg/dl (8.4-10.2); Carbon Dioxide 26 mmol/L (22-30); Chloride 105 mmol/L (98-107); Estimated Creatinine Clearance 113 ml/min; Glucose 119 mg/dl (70-99); Magnesium 2.1 mg/dl (1.6-2.3); Potassium 3.6 mmol/L (3.5-5.1); Sodium 137 mmol/L (135-145); eGFR > 60.00
--- NOTE | 2023-06-23 07:41 | W.PN.GS2 ---
Today's Communication / Plan
-
-- Awaiting ROBF
Assessment / Plan
-
Patient is a 67 yo M POD#2 s/p laparoscopic assisted SBR x 2 and open primary umbilical hernia repair
Recovering well. No postoperative concerns.
-- NPO, IVF, NGT decompression until ROBF, OK to clamp for meds and ambulation
-- Pain control: Tylenol, Toradol, IV Dilaudid PRN
-- mIVF
-- Abx for 24 hours post-op, no need for additional after today
-- OOB/ambulate
-- Lovenox for DVT
-- Protonix for GI
Subjective Data
-
Date of Service: June 23, 2023
Complaints or concerns. Reports again some mild LEFT flank discomfort which has resolved. Previously noted shoulder soreness has resolved. No nausea or vomiting. Minimal flatus, no BM, sensation of having to go. Voiding. Minimal ambulation.
Afebrile.
Objective Data
-
Intake and Output
06/22/23 06/23/23 06/24/23
06:59 06:59 06:59
Intake Total 1340 / 1340 2670 / 2670
Output Total 2875 / 2875 2190 / 2190
Balance -1535 / -1535 480 / 480
Intake:
Oral fluids 170 / 170
IV fluids (Total) 1110 / 1110 1920 / 1920
normosol 150 / 150
IV piggybacks 200 / 200 400 / 400
Amount instilled into GI Tube ( 30 / 30 180 / 180
Total)
[place] Sump 30 / 30 180 / 180
Output:
Gastrointestinal tube output ( 1550 / 1550 910 / 910
Total)
[place] Sump 1550 / 1550 910 / 910
Urine, Olivo 325 / 325
Urine, Voided 1000 / 1000 1280 / 1280
Other:
Number of approximated LARGE 1
amounts of urine
Vital Signs
Temp Pulse Resp BP Pulse Ox
97.9 F 70 14 132/83 96
06/22/23 23:42 06/22/23 23:42 06/22/23 23:42 06/22/23 23:42 06/22/23 23:42
Lab Results
06/22/23 06:10
06/23/23 06:11
Calcium 8.9 mg/dl (8.4-10.2) 06/23/23 06:11
Magnesium 2.1 mg/dl (1.6-2.3) 06/23/23 06:11
Total Bilirubin 1.0 mg/dl (0.2-1.3) 06/21/23 00:34
AST 25 U/L (17-59) 06/21/23 00:34
ALT 20 U/L (0-50) 06/21/23 00:34
Alkaline Phosphatase 70 U/L (38-126) 06/21/23 00:34
Total Protein 7.4 g/dl (6.3-8.2) 06/21/23 00:34
Albumin 4.7 g/dl (3.5-5.0) 06/21/23 00:34
Physical Exam
-
Gen: NAD
Abd: soft, minimal tenderness, ND, non-peritoneal, incisions c/d/i - no erythema, ecchymosis or drainage
[2023-06-23] MEDS: FLAGYL 500 MG 100 IV ×2 (08:17→15:52)
[2023-06-23] MEDS: NSS (PRESERVATIVE FREE) 10 ML IV (08:18)
[2023-06-23] MEDS: PROTONIX IV 40 MG IV (08:18)
[2023-06-23] MEDS: COZAAR 100 MG PO (08:22)
[2023-06-23] MEDS: NORVASC 2.5 MG PO (08:25)
[2023-06-23] MEDS: LIDOCAINE 4% PATCH TOPICAL (08:26)
[2023-06-23 08:30] VITALS: BP 144/73
[2023-06-23] MEDS: LEVAQUIN 100 IV (09:21)
--- NOTE | 2023-06-23 10:27 | W.PN.HOSP.TC ---
Today's Communication/Plan
-
see plan
Assessment / Plan
Assessment / Plan
67 y/o man with hx HTN presents with abd pain in setting no BM x 3 days. In ER, CT imaging revealed high-grade SBO.
CT A/P
IMPRESSION:
1. Findings consistent with high-grade small bowel obstruction. Transition point is seen within the mid abdomen, best seen on series 201 images 48-53, and coronal images 22-25. Obstruction may be due to adhesions, small bowel inflammatory process,
or small bowel mass.
2. No evidence of pneumatosis intestinalis or extraluminal air.
High grade mechanical SBO
- now post-op Day 2 laparoscopic assisted SBR x 2 and open primary umbilical hernia repair
- NPO/ IVF
- NGT
- pain control
- antibiotics Levaquin/Flagyl - stop after this evening
- appreciate surgery
- DVT PPx
MSK sprain
-trial of lidocaine patch
- heat pack
-improving
Essential HTN
- home meds: ARB/Norvasc
- monitor BP
DVT ppx: lovenox
Code: Full
Anticipated Discharge: > 48 hours
Subjective/Interval History
-
Date of Service: June 23, 2023
NGT in
feels some rumbling in abdomen
pain controlled
walked around hallways this morning
Objective Data
-
Labs:
Laboratory Results
06/23/23
06:11
Sodium 137
Potassium 3.6
Chloride 105
Carbon Dioxide 26
BUN 17
Creatinine 0.8
Glucose 119 H
Calcium 8.9
Vital Signs:
Vital Signs
Temp Pulse Resp BP Pulse Ox
98.0 F 67 18 144/73 97
06/23/23 08:30 06/23/23 08:30 06/23/23 08:30 06/23/23 08:30 06/23/23 08:30
I&O
06/22/23 06/23/23 06/24/23
06:59 06:59 06:59
Intake Total 1340 / 1340 2670 / 2670
Output Total 2875 / 2875 2190 / 2190
Balance -1535 / -1535 480 / 480
Review of Systems
-
History Source: Patient
All other systems: Reviewed and negative
Physical Exam
-
General: No Apparent Distress
HEENT: PERRLA and Other (NGT in place )
Respiratory: Clear to Auscultation; Negative Wheezes
Cardiac: Regular Rhythm and S1/S2
GI: Other (non-tender with NGT in )
Musculoskeletal: No Edema and Other (tenderness left shoulder; no nuchal rigidity )
Skin: Warm and Dry; Negative Rash
Neuro: AO x 3
Psych: Calm
Data Reviewed
-
Diagnostic Radiology: Report Reviewed by me
Labs: Labs Reviewed by me
[2023-06-23] MEDS: KCL 270 MEQ IV (10:52)
--- NOTE | 2023-06-23 14:46 | CM ---
POD #2 small bowel resection and umbilical hernia repair. NPO, NGT. Discharge Plan of Care: Home with [facility]N. Met with patient whose preference is [facility]. Referral will be sent.
[2023-06-23 15:22] VITALS: BP 163/84
[2023-06-23] MEDS: LOVENOX 40 MG SC (18:07)
[2023-06-23] MEDS: MELATONIN 3 MG PO (21:04)
[2023-06-23 23:40] VITALS: BP 157/86
[2023-06-24] MEDS: TORADOL 10 MG IV (01:10)
[2023-06-24] MEDS: D5LR 1000 IV ×2 (04:07→18:20)
[2023-06-24 06:00] LABS: Blood Urea Nitrogen 14 mg/dl (9-20); Calcium 8.8 mg/dl (8.4-10.2); Carbon Dioxide 25 mmol/L (22-30); Chloride 106 mmol/L (98-107); Estimated Creatinine Clearance > 125 ml/min; Glucose 119 mg/dl (70-99); Potassium 3.5 mmol/L (3.5-5.1); Sodium 138 mmol/L (135-145); eGFR > 60.00
[2023-06-24 07:38] VITALS: BP 152/77
[2023-06-24] MEDS: NSS (PRESERVATIVE FREE) 10 ML IV (08:04)
[2023-06-24] MEDS: PROTONIX IV 40 MG IV (08:04)
[2023-06-24] MEDS: LIDOCAINE 4% PATCH TOPICAL (08:05)
[2023-06-24] MEDS: COZAAR 100 MG PO (08:06)
[2023-06-24] MEDS: NORVASC 2.5 MG PO (08:06)
--- NOTE | 2023-06-24 08:27 | W.PN.GS2 ---
Addendum entered and electronically signed by Fer Worely MD 06/24/23 08:45:
pt seen and examined with PROFESSOR OF CHEMICAL ENGINEERING
going well post op
+flatus, no nausea
AFVSS
ABD soft, ND, minimal incisional tenderness
incisions with glue dressings
A/P: removed NGT
clear liquids
Original Note:
Today's Communication / Plan
-
d/c NGT, start CLD
Assessment / Plan
-
Patient is a 67 yo M POD#3 s/p laparoscopic assisted SBR x 2 and open primary umbilical hernia repair
AFVSS
Recovering well. No postoperative concerns.
NGT removed at bedside
-- Clear liquids
-- Pain control: Tylenol, Toradol, IV Dilaudid PRN
-- IVF until tolerating PO
-- follow off abx
-- OOB/ambulate
-- Lovenox for DVT ppx
-- Protonix for GI ppx
Subjective Data
-
Date of Service: June 24, 2023
Patient seen and examined at bedside with Dr. Worley. Ambulating in room. Reports passing flatus. Denies n/v. Some incisional discomfort but pain well managed.
Objective Data
-
Intake and Output
06/23/23 06/24/23 06/25/23
06:59 06:59 06:59
Intake Total 2670 / 2670 2490 / 2490
Output Total 2190 / 2190 2200 / 2200
Balance 480 / 480 290 / 290
Intake:
Oral fluids 170 / 170
IV fluids (Total) 1920 / 1920 1680 / 1680
IV piggybacks 400 / 400 570 / 570
Amount instilled into GI Tube ( 180 / 180 240 / 240
Total)
[place] Sump 180 / 180 240 / 240
Output:
Gastrointestinal tube output ( 910 / 910 750 / 750
Total)
[place] Sump 910 / 910 750 / 750
Urine, Voided 1280 / 1280 1450 / 1450
Other:
Number of approximated MODERATE 2
amounts of urine
Number of approximated LARGE 1
amounts of urine
Vital Signs
Temp Pulse Resp BP Pulse Ox
97.8 F 63 18 152/77 97
06/24/23 07:38 06/24/23 08:06 06/24/23 07:38 06/24/23 08:06 06/24/23 07:38
Lab Results
06/22/23 06:10
06/24/23 05:02
Calcium 8.8 mg/dl (8.4-10.2) 06/24/23 05:02
Magnesium 2.0 mg/dl (1.6-2.3) 06/24/23 05:02
Total Bilirubin 1.0 mg/dl (0.2-1.3) 06/21/23 00:34
AST 25 U/L (17-59) 06/21/23 00:34
ALT 20 U/L (0-50) 06/21/23 00:34
Alkaline Phosphatase 70 U/L (38-126) 06/21/23 00:34
Total Protein 7.4 g/dl (6.3-8.2) 06/21/23 00:34
Albumin 4.7 g/dl (3.5-5.0) 06/21/23 00:34
Physical Exam
-
Gen: NAD
Abd: soft, minimal tenderness, ND, non-peritoneal, NGT with gastric outputs
incisions c/d/i - no erythema, ecchymosis or drainage
--- NOTE | 2023-06-24 09:29 | W.PN.HOSP.TC ---
Today's Communication/Plan
-
NGT out, clears
Assessment / Plan
Assessment / Plan
67 y/o man with hx HTN presents with abd pain in setting no BM x 3 days. In ER, CT imaging revealed high-grade SBO.
CT A/P
IMPRESSION:
1. Findings consistent with high-grade small bowel obstruction. Transition point is seen within the mid abdomen, best seen on series 201 images 48-53, and coronal images 22-25. Obstruction may be due to adhesions, small bowel inflammatory process,
or small bowel mass.
2. No evidence of pneumatosis intestinalis or extraluminal air.
High grade mechanical SBO
- now post-op Day 3 laparoscopic assisted SBR x 2 and open primary umbilical hernia repair
- NGT out this AM
- started on clears
- pain control
- s/p antibiotics Levaquin/Flagyl
- appreciate surgery
- DVT PPx
MSK sprain
-trial of lidocaine patch
- heat pack
-improving
Essential HTN
- home meds: ARB/Norvasc
- monitor BP
DVT ppx: lovenox
Code: Full
Anticipated Discharge: 24 - 48 hours
Subjective/Interval History
-
Date of Service: June 24, 2023
NGT out
patient feeling well
about to eat clears
passed gas
Objective Data
-
Labs:
Laboratory Results
06/24/23
05:02
Sodium 138
Potassium 3.5
Chloride 106
Carbon Dioxide 25
BUN 14
Creatinine 0.7
Glucose 119 H
Calcium 8.8
Vital Signs:
Vital Signs
Temp Pulse Resp BP Pulse Ox
97.8 F 63 18 152/77 97
06/24/23 07:38 06/24/23 08:06 06/24/23 07:38 06/24/23 08:06 06/24/23 07:38
I&O
06/23/23 06/24/23 06/25/23
06:59 06:59 06:59
Intake Total 2670 / 2670 2490 / 2490
Output Total 2190 / 2190 2200 / 2200 600 / 600
Balance 480 / 480 290 / 290 -600 / -600
Review of Systems
-
History Source: Patient
All other systems: Reviewed and negative
Physical Exam
-
General: No Apparent Distress
HEENT: PERRLA and Other (NGT in place )
Respiratory: Clear to Auscultation; Negative Wheezes
Cardiac: Regular Rhythm and S1/S2
GI: Other (non-tender with NGT in )
Musculoskeletal: No Edema and Other (tenderness left shoulder improved; good ROM)
Skin: Warm and Dry; Negative Rash
Neuro: AO x 3
Psych: Calm
Data Reviewed
-
Diagnostic Radiology: Report Reviewed by me
Labs: Labs Reviewed by me
--- NOTE | 2023-06-24 11:16 | VNURNOTE ---
Home Health Liaison met with patient at 1030 to discuss [facility] nurse/therapy, visits, schedule and homebound status. Patient is agreeable and understands that visits at home will be 2-3 x per week to assess and teach medical management.
[facility] contact information provided. Patient is aware that [facility] will contact him for start of care in 1-2 days after discharge from .
[facility] referral updated in [facility].
[2023-06-24 12:22] VITALS: BMI 32.9
--- NOTE | 2023-06-24 13:12 | CM ---
POD # 3, NG out, clear liquids. Discharge Plan of Care: Home with [facility] services.
[2023-06-24 15:33] VITALS: BP 132/72
[2023-06-24] MEDS: LOVENOX 40 MG SC (17:49)
[2023-06-24] MEDS: MELATONIN 3 MG PO (21:47)
[2023-06-24 23:41] VITALS: BP 150/85
[2023-06-25 07:54] LABS: Blood Urea Nitrogen 11 mg/dl (9-20); Calcium 9.2 mg/dl (8.4-10.2); Carbon Dioxide 24 mmol/L (22-30); Chloride 107 mmol/L (98-107); Estimated Creatinine Clearance > 125 ml/min; Glucose 115 mg/dl (70-99); Magnesium 2.1 mg/dl (1.6-2.3); Potassium 3.9 mmol/L (3.5-5.1); Sodium 140 mmol/L (135-145); eGFR > 60.00
[2023-06-25 07:59] VITALS: BP 132/70
[2023-06-25] MEDS: NORVASC 2.5 MG PO (08:23)
[2023-06-25] MEDS: PROTONIX IV 40 MG IV (08:23)
[2023-06-25] MEDS: NSS (PRESERVATIVE FREE) 10 ML IV (08:23)
[2023-06-25] MEDS: COZAAR 100 MG PO (08:24)
[2023-06-25] MEDS: LIDOCAINE 4% PATCH TOPICAL (08:26)
--- NOTE | 2023-06-25 09:35 | W.PN.GS2 ---
Today's Communication / Plan
-
ADAT
Assessment / Plan
-
Patient is a 67 yo M POD#4 s/p laparoscopic assisted SBR x 2 and open primary umbilical hernia repair
AFVSS
Recovering well. No postoperative concerns.
+flatus/tolerating clears
-- Full liquids
-- Pain control: Tylenol, Toradol, Tramadol vs IV Morphine PRN
-- D/C IVF
-- OOB/ambulate
-- Lovenox for DVT ppx
-- Protonix for GI ppx
Subjective Data
-
Date of Service: June 25, 2023
Patient seen and evaluated at bedside. OOB to chair and ambulating in halls. Notes he is passing flatus. Denies n/v. Tolerating clears. Minimal discomfort.
Objective Data
-
Intake and Output
06/24/23 06/25/23 06/26/23
06:59 06:59 06:59
Intake Total 2490 / 2490 720 / 720
Output Total 2200 / 2200 3250 / 3250
Balance 290 / 290 -2530 / -2530
Intake:
IV fluids (Total) 1680 / 1680 720 / 720
IV piggybacks 570 / 570
Amount instilled into GI Tube ( 240 / 240
Total)
[place] Sump 240 / 240
Output:
Gastrointestinal tube output ( 750 / 750
Total)
[place] Sump 750 / 750
Urine, Voided 1450 / 1450 3250 / 3250
Other:
Number of approximated MODERATE 2
amounts of urine
Number of approximated LARGE 2
amounts of urine
Vital Signs
Temp Pulse Resp BP Pulse Ox
98.4 F 68 19 132/70 98
06/25/23 07:59 06/25/23 08:24 06/25/23 07:59 06/25/23 08:24 06/25/23 07:59
Lab Results
06/22/23 06:10
06/25/23 07:08
Calcium 9.2 mg/dl (8.4-10.2) 06/25/23 07:08
Magnesium 2.1 mg/dl (1.6-2.3) 06/25/23 07:08
Total Bilirubin 1.0 mg/dl (0.2-1.3) 06/21/23 00:34
AST 25 U/L (17-59) 06/21/23 00:34
ALT 20 U/L (0-50) 06/21/23 00:34
Alkaline Phosphatase 70 U/L (38-126) 06/21/23 00:34
Total Protein 7.4 g/dl (6.3-8.2) 06/21/23 00:34
Albumin 4.7 g/dl (3.5-5.0) 06/21/23 00:34
Physical Exam
-
Gen: NAD
Abd: soft, minimal tenderness, ND, non-peritoneal
incisions c/d/i - no erythema, ecchymosis or drainage
--- NOTE | 2023-06-25 10:51 | W.PN.HOSP.TC ---
Today's Communication/Plan
-
advance diet per surgery
approaching DC later today or tomorrow if tolerates diet
Assessment / Plan
Assessment / Plan
67 y/o man with hx HTN presents with abd pain in setting no BM x 3 days. In ER, CT imaging revealed high-grade SBO.
CT A/P
IMPRESSION:
1. Findings consistent with high-grade small bowel obstruction. Transition point is seen within the mid abdomen, best seen on series 201 images 48-53, and coronal images 22-25. Obstruction may be due to adhesions, small bowel inflammatory process,
or small bowel mass.
2. No evidence of pneumatosis intestinalis or extraluminal air.
High grade mechanical SBO
- now post-op Day 4 laparoscopic assisted SBR x 2 and open primary umbilical hernia repair
-advancing diet per surgery
- pain control
- s/p antibiotics Levaquin/Flagyl, now off
- appreciate surgery
- DVT PPx
MSK sprain
-trial of lidocaine patch
- heat pack
-improving
Essential HTN
- home meds: ARB/Norvasc
- monitor BP
DVT ppx: lovenox
Code: Full
Anticipated Discharge: Within 24 hours
Subjective/Interval History
-
Date of Service: June 25, 2023
feeling well
about to eat fulls
passing gas
ambulating
Objective Data
-
Labs:
Laboratory Results
06/25/23
07:08
Sodium 140
Potassium 3.9
Chloride 107
Carbon Dioxide 24
BUN 11
Creatinine 0.6 L
Glucose 115 H
Calcium 9.2
Vital Signs:
Vital Signs
Temp Pulse Resp BP Pulse Ox
98.4 F 68 19 132/70 98
06/25/23 07:59 05/18/24 08:24 06/25/23 07:59 06/25/23 08:24 06/25/23 07:59
I&O
06/24/23 06/25/23 06/26/23
06:59 06:59 06:59
Intake Total 2490 / 2490 720 / 720
Output Total 2200 / 2200 3250 / 3250
Balance 290 / 290 -2530 / -2530
Review of Systems
-
History Source: Patient
All other systems: Reviewed and negative
Physical Exam
-
General: No Apparent Distress
HEENT: PERRLA and Other (NGT in place )
Respiratory: Clear to Auscultation; Negative Wheezes
Cardiac: Regular Rhythm and S1/S2
GI: Other (non-tender with NGT in )
Musculoskeletal: No Edema and Other (tenderness left shoulder improved; good ROM)
Skin: Warm and Dry; Negative Rash
Neuro: AO x 3
Psych: Calm
Data Reviewed
-
Diagnostic Radiology: Report Reviewed by me
Labs: Labs Reviewed by me
[2023-06-25 15:40] VITALS: BP 154/67
[2023-06-25] MEDS: LOVENOX 40 MG SC (17:20)
[2023-06-25] MEDS: TYLENOL 650 MG PO (20:10)
[2023-06-25] MEDS: MELATONIN 3 MG PO (21:08)
[2023-06-25 23:27] VITALS: BP 147/74
[2023-06-26 07:20] VITALS: BP 158/76
[2023-06-26] MEDS: LIDOCAINE 4% PATCH TOPICAL (08:03)
[2023-06-26] MEDS: COZAAR 100 MG PO (08:03)
[2023-06-26] MEDS: NSS (PRESERVATIVE FREE) 10 ML IV (08:04)
[2023-06-26] MEDS: NORVASC 2.5 MG PO (08:04)
[2023-06-26] MEDS: PROTONIX IV 40 MG IV (08:04)
[2023-06-26] MEDS: FLUSH (NSS) 2 FLUSH IV (08:06)
--- NOTE | 2023-06-26 08:13 | W.PN.GS2 ---
Today's Communication / Plan
-
Dispo planning
Assessment / Plan
-
Patient is a 67 yo M POD#5 s/p laparoscopic assisted SBR x 2 and open primary umbilical hernia repair
AFVSS
Recovering well. No postoperative concerns.
+flatus/tolerating clears
-- Continue LRD
-- Pain control: Tylenol, Toradol, Tramadol vs IV Morphine PRN
-- OOB/ambulate
-- Lovenox for DVT ppx
-- Protonix for GI ppx
Clear for discharge from surgical standpoint
Subjective Data
-
Date of Service: June 26, 2023
Patient seen and examined at bedside. Denies n/v. OOB to chair and ambulating in halls. Pain minimal and well managed. Tolerating diet. Passing stool/flatus.
Objective Data
-
Intake and Output
06/25/23 06/26/23 06/27/23
06:59 06:59 06:59
Intake Total 720 / 720 1440 / 1440
Output Total 3250 / 3250
Balance -2530 / -2530 1440 / 1440
Intake:
Oral fluids 1440 / 1440
IV fluids (Total) 720 / 720
Output:
Urine, Voided 3250 / 3250
Other:
Number of approximated MODERATE 3
amounts of urine
Number of approximated LARGE 2 1
amounts of urine
Vital Signs
Temp Pulse Resp BP Pulse Ox
98.5 F 56 16 158/76 98
06/26/23 07:20 06/26/23 08:04 06/26/23 07:20 06/26/23 08:04 06/26/23 07:20
Lab Results
06/22/23 06:10
06/25/23 07:08
Calcium 9.2 mg/dl (8.4-10.2) 06/25/23 07:08
Magnesium 2.1 mg/dl (1.6-2.3) 06/25/23 07:08
Total Bilirubin 1.0 mg/dl (0.2-1.3) 06/21/23 00:34
AST 25 U/L (17-59) 06/21/23 00:34
ALT 20 U/L (0-50) 06/21/23 00:34
Alkaline Phosphatase 70 U/L (38-126) 06/21/23 00:34
Total Protein 7.4 g/dl (6.3-8.2) 06/21/23 00:34
Albumin 4.7 g/dl (3.5-5.0) 06/21/23 00:34
Physical Exam
-
Gen: NAD
Abd: soft, minimal tenderness, ND, non-peritoneal
incisions c/d/i - no erythema, ecchymosis or drainage
--- NOTE | 2023-06-26 10:11 | W.PN.HOSP.TC ---
Today's Communication/Plan
-
OK for DC today
Assessment / Plan
Assessment / Plan
67 y/o man with hx HTN presents with abd pain in setting no BM x 3 days. In ER, CT imaging revealed high-grade SBO.
CT A/P
IMPRESSION:
1. Findings consistent with high-grade small bowel obstruction. Transition point is seen within the mid abdomen, best seen on series 201 images 48-53, and coronal images 22-25. Obstruction may be due to adhesions, small bowel inflammatory process,
or small bowel mass.
2. No evidence of pneumatosis intestinalis or extraluminal air.
High grade mechanical SBO
- now post-op Day 5 laparoscopic assisted SBR x 2 and open primary umbilical hernia repair
-advancing diet per surgery - tolerated LRD
- pain control
- s/p antibiotics Levaquin/Flagyl, now off
- appreciate surgery
- DVT PPx
MSK sprain
-trial of lidocaine patch
- heat pack
-improving
Essential HTN
- home meds: ARB/Norvasc
- monitor BP
DVT ppx: lovenox
Code: Full
Anticipated Discharge: Today
Subjective/Interval History
-
Date of Service: June 26, 2023
feeling well
wants to go home
had a BM
ate breakfast
Objective Data
-
Vital Signs:
Vital Signs
Temp Pulse Resp BP Pulse Ox
98.5 F 56 16 158/76 98
06/26/23 07:20 06/26/23 08:04 06/26/23 07:20 06/26/23 08:04 06/26/23 07:20
I&O
06/25/23 06/26/23 06/27/23
06:59 06:59 06:59
Intake Total 720 / 720 1440 / 1440
Output Total 0 / 3250
Balance -2530 / -0 1439
Review of Systems
-
History Source: Patient
All other systems: Reviewed and negative
Physical Exam
-
General: No Apparent Distress
HEENT: PERRLA
Respiratory: Clear to Auscultation; Negative Wheezes
Cardiac: Regular Rhythm and S1/S2
GI: Other (non-tender with NGT in )
Musculoskeletal: No Edema and Other (tenderness left shoulder improved; good ROM)
Skin: Warm and Dry; Negative Rash
Neuro: AO x 3
Psych: Calm
Data Reviewed
-
Diagnostic Radiology: Report Reviewed by me
Labs: Labs Reviewed by me
--- NOTE | 2023-06-26 10:37 | W.DS.TRANS ---
DC Summary - [employer]
-
Discharge Instructions:
Discharge Diagnosis/Procedures small bowel obstruction status post Laparoscopic
assisted small-bowel resection x2, primary
umbilical hernia repair.
Diet Low Fiber
Activity No strenuous activity
Additional Activity Do not lift more than 15 lbs for 4-6 weeks
Driving Restrictions Wait until off narcotics/comfortable twisting
Bathing Restrictions OK to Shower
Wound Care Ok to shower, wash incisions gently with soap
and water. The glue will flake off on its own in
2-3 weeks, avoid picking or scrubbing it off.
Instructions: Low Fiber Diet
Stand-Alone Forms:
Changes to Home Medications: Yes
Discharge Medications:
DC Medications w/original date entered in [facility]
amlodipine 2.5 mg tablet 2.5 mg PO DAILY Blood Pressure 12/21/17
losartan 50 mg tablet 100 mg PO DAILY Blood Pressure 12/21/17
ascorbic acid (vitamin C) 500 mg tablet (Vitamin C) 500 mg PO DAILY Supplement 08/06/22
ascorbic acid (vitamin C) 500 mg tablet (Vitamin C) 500 mg PO DAILY Supplement 08/06/22
cholecalciferol (vitamin D3) 25 mcg (1,000 unit) tablet (Vitamin D3) 25 mcg PO DAILY Supplement 08/06/22
ferrous sulfate 325 mg (65 mg iron) tablet (iron) 325 mg PO DAILY Supplement 08/06/22
garlic 400 mg tablet,delayed release 1 mg PO Supplement 08/06/22
magnesium oxide 500 mg PO DAILY Electrolyte Repletion 08/06/22
multivitamin 1 tab Supplement 08/06/22
omega 6-hzt-ios-fish oil 1,200 mg (144 mg-216 mg) capsule (Fish Oil) 1 cap PO 1XD High Cholesterol 08/06/22
vitamin B6-vitamin E-magnesium tablet 1 tab PO 1XD Supplement 08/06/22
vitamin E 100 unit tablet 1 unit PO 1XD Supplement 08/06/22
Home Medication Changes
Pending Results: No
--- NOTE | 2023-06-26 14:08 | W.DCSUMMARY ---
Discharge Summary
Discharge Data
Date of Admission: 06/21/23
Date of Discharge: 06/26/23
-
Pending Results: No
Hospital Course
Discharging Physician : Dr. Nel Hopkins
Disposition : Home
Primary care physician : Dr. Devin Yanez
Principal Discharge diagnosis : Small Bowel Obstruction status post Laparoscopic assisted small-bowel resection x2, primary umbilical hernia repair.
Hospital Course :
Mr. Thierry Martin is a 67 yo man with hx HTN presents to the ER with severe abdominal pain. Triage vitals stable. Labs with WBC 14.6. CT A/P with e/o high-grade SBO. Patient was taken to OR on 06/20, s/p Laparoscopic assisted small bowel
resection x2, primary umbilical hernia repair. NGT placed. He was kept on several days of IV antibiotics. With return of bowel function, NGT removed, he was started on clears. Diet advanced and patient tolerated. He had a BM prior to discharge.
No changes to home medications.
Time spent on discharge was 32 minutes.
Important imaging findings :
CT A/P
IMPRESSION:
1. Findings consistent with high-grade small bowel obstruction. Transition point is seen within the mid abdomen, best seen on series 201 images 48-53, and coronal images 22-25. Obstruction may be due to adhesions, small bowel inflammatory process,
or small bowel mass.
2. No evidence of pneumatosis intestinalis or extraluminal air.
Procedure findings :
Discharge Plan
-
Patient Disposition: Home (Routine Discharge)
Discharge Diagnosis/Procedures: small bowel obstruction status post Laparoscopic assisted small-bowel resection x2, primary
umbilical hernia repair.
Condition: Good
Diet: Low Fiber
Activity: No strenuous activity
Additional Activity: Do not lift more than 15 lbs for 4-6 weeks
[address]riving Restrictions: Wait until off narcotics/comfortable twisting
Bathing Restrictions: OK to Shower
Wound Care: Ok to shower, wash incisions gently with soap and water. The glue will flake off on its own in 2-3 weeks, avoid picking or scrubbing it off.
Activity Restrictions/Additional Instructions:
Call your surgeon if you have a fever >100.5, nausea with vomiting or worsening abdominal pain
Instructions: Low Fiber Diet
Referrals:
Valeriy Marquez MD [Active] - in two to three weeks
Devin Yanez DO [Family Provider] -
Prescriptions:
Continued
losartan 50 MG tablet
100 mg PO DAILY
amlodipine 2.5 MG tablet
2.5 mg PO DAILY
multivitamin Tablet
1 tab
garlic 400 mg Tablet,Delayed Release (Dr/Ec)
1 mg PO
ascorbic acid (vitamin C) [Vitamin C] 500 mg Tablet
500 mg PO DAILY
ascorbic acid (vitamin C) [Vitamin C] 500 mg Tablet
500 mg PO DAILY
ferrous sulfate [iron] 325 mg (65 mg iron) Tablet
325 mg PO DAILY
vitamin E 100 unit Tablet
1 unit PO 1XD
vitamin B6-vitamin E-magnesium Tablet
1 tab PO 1XD
cholecalciferol (vitamin D3) [Vitamin D3] 25 mcg (1,000 unit) Tablet
25 mcg PO DAILY
omega 1-zhq-lop-fish oil [Fish Oil] 1,200 (144-216) mg Capsule
1 cap PO 1XD
Held
magnesium oxide 500 mg Tablet
500 mg PO DAILY
Hold Instructions: Resume on 07/04/23.
Discontinued
metronidazole 500 MG tablet
500 mg PO TID Qty: 21 0RF
Discharge Orders:
Discharge Patient (As Directed); Ordered 06/26/23
Ordered By: Nel Hopkins
Discharge Date and Time
Discharge Date/Time: 06/26/23 10:57
Print Language: GEORGIAN
--- NOTE | 2023-06-29 16:31 | PN.CDI ---
CDI
- -
CDI:
Physician Documentation Request
Admit Date: 06/21/23 03:51
Dear Doctor Jimmy,
Please review the following and provide your response in the progress notes.
Clinical Indicators:
The diagnosis of Abscess was included in the signed Pathology Report.
Pathology Report states...'A. Small bowel, resection:
�Segment of small bowel with an abscess involving the serosa and submucosa. Resection margins are viable and noninvolved.
Negative for dysplasia or malignancy.
. Sectioning within the area kinked together with adhesions reveals an abscess cavity at the junction of the 2 segments of bowel, measuring 1.4 x 1.2 x 0.8 cm, which is lined by
red-brown, glistening soft tissue and contains a smith-brown, firm fecalith measuring 0.8 x 0.7 x 0.5 cm.
Patient was on Levaquin IV for 3 days (06/20-06/22) and Flagyl IV for 7 doses (06/20-06/22)
WBC on admission 14.6
Please indicate in your progress notes if you are in agreement that the above diagnosis is valid for this patient:
____ - Intestinal Abscess is a valid diagnosis (Please include it in your progress notes)
____ - Intestinal Abscess is not a valid diagnosis for this patient
____ - Other
____ - Unable to determine
Use of terms such as suspected, likely, concern for, or probable are acceptable for a diagnosis that is being evaluated, monitored or treated as if it exists and can be coded in the inpatient setting, when documented at the time of discharge.
Thank you,
Cynthia CORRAL, RN, CCDS
CDI Specialist
[id number]
Please use your independent medical judgment in providing your response.
== END 2023-06-26 10:57 | disposition home health service (06) | DRG 330 ==
LOC: 2 SOUTH 03:51
PROVIDERS: Clinical Nurse Specialist Family Health; ADMITTING PHYSICIAN Internal Medicine; ATTENDING PHYSICIAN Student in an Organized Health Care Education/Training Program; CONSULT PHYSICIAN Surgery; EMERGENCY PHYSICIAN Student in an Organized Health Care Education/Training Program; FAMILY PHYSICIAN Family Medicine
PROC: 0D9670Z Drainage of Stomach with Drainage Device, Via Natural or Artificial Opening (ICD-10-PCS; 2023-06-21)
PROC: 0DBA4ZZ Excision of Jejunum, Percutaneous Endoscopic Approach (ICD-10-PCS; 2023-06-21)
PROC: 0DB84ZZ Excision of Small Intestine, Percutaneous Endoscopic Approach (ICD-10-PCS; 2023-06-21)
PROC: 0WQF0ZZ Repair Abdominal Wall, Open Approach (ICD-10-PCS; 2023-06-21)
PROC: 0WJF4ZZ Inspection of Abdominal Wall, Percutaneous Endoscopic Approach (ICD-10-PCS; 2023-06-21)
DX: K56.52 Intestinal adhesions [bands] with complete obstruction (principal); K63.0 Abscess of intestine; I10 Essential (primary) hypertension; L30.9 Dermatitis, unspecified; K42.9 Umbilical hernia without obstruction or gangrene; D72.829 Elevated white blood cell count, unspecified; E66.9 Obesity, unspecified; G62.9 Polyneuropathy, unspecified; Q43.0 Meckel's diverticulum (displaced) (hypertrophic); Z87.891 Personal history of nicotine dependence; Z88.1 Allergy status to other antibiotic agents; Z68.32 Body mass index [BMI] 32.0-32.9, adult
CPT/HCPCS: 88307; 74018; 74177; 80048; 80053; 81003; 83690; 83735; 85025; 85027; 96361; 96374; 96375; 99285; Q9967

== ENCOUNTER → 2024-01-04 12:38 | Outpatient (REF) | payer MEDICARE, SELFPAY | LOC: HWRAD 12:38 | PROVIDERS: ATTENDING PHYSICIAN Internal Medicine | DX: R19.8 Other specified symptoms and signs involving the digestive system and abdomen (principal); Z87.19 Personal history of other diseases of the digestive system | CPT/HCPCS: 74018 ==

== ENCOUNTER → 2024-10-25 06:28 | Outpatient (REF) | payer MEDICARE, SELFPAY | LOC: RAD 06:28 | PROVIDERS: ATTENDING PHYSICIAN Nurse Practitioner Family | DX: Z13.6 Encounter for screening for cardiovascular disorders (principal) | CPT/HCPCS: 76770 ==